=== PATIENT | male | born 1980 | race Two or more races ===

== ENCOUNTER 2019-01-23 16:24 | Inpatient (IN) | payer SELFPAY ==
[2019-01-23] MEDS ORDERED: ONDANSETRON HCL INJ/PF 4 MG/2 ML SDV IV ONE (16:53)
[2019-01-23] MEDS ORDERED: MORPHINE SULFATE 10 MG/ML INJ IV ONE (16:53)
--- NOTE | 2019-01-23 17:17 | ER Document Report ---
Entered by ELIZABETH MALHOTRA SCRIBE 01/23/19 [id number] Acting as scribe for:LALA CORREIA MD ED General - General Chief Complaint: Shoulder Pain Stated Complaint: SHOULDER PAIN Time Seen by Provider: 01/23/19 16:32 Mode of Arrival: Ambulatory Information source: Patient Notes: This 38-year-old male patient presents to the emergency department today with complaints of not being able to walk for the last x2 days. Patient complains of bilateral hip pain and right shoulder pain. Patient states his right shoulder is very swollen as well which also started x2 days ago. Patient states he has no chronic medical problems, has had what he thinks was a cholecystectomy in [place]. Patient denies any trauma or history of similar symptoms. Pertinent PMHx/PSHx: Cholecystectomy? - additional PMHx/PSHx not pertinent to this visit as recorded. PCP: none - Related Data Allergies/Adverse Reactions: No Known Allergies Allergy (Verified 01/23/19 17:02) Past Medical History - General Information source: Patient - Social History Smoking Status: Smoker,Current Status Unk Cigarette use (# per day): Yes - Patient reports he will smoke 1 cigarette every few days. Chew tobacco use (# tins/day): No Smoking Education Provided: No Frequency of alcohol use: None Drug Abuse: None Occupation: Construction Lives with: Family Family History: Reviewed & Not Pertinent - No history of rheumatological type problems - Medical History Medical History: Negative Past Surgical History: Reports: Hx Cholecystectomy Review of Systems - Review of Systems Constitutional: No symptoms reported EENT: No symptoms reported Cardiovascular: No symptoms reported Respiratory: No symptoms reported Gastrointestinal: No symptoms reported Genitourinary: No symptoms reported Male Genitourinary: No symptoms reported Musculoskeletal: See HPI Skin: No symptoms reported Hematologic/Lymphatic: No symptoms reported Neurological/Psychological: No symptoms reported -: Yes All other systems reviewed and negative Physical Exam - Vital signs Vitals: Temp Pulse Resp BP Pulse Ox 98.8 F 82 21 H 129/94 H 89 L 01/23/19 16:39 01/23/19 16:39 01/23/19 16:39 01/23/19 16:39 01/23/19 16:39 - General General appearance: Alert, Anxious In distress: Moderate - HEENT Head: Normocephalic, Atraumatic Eyes: Normal Pupils: PERRL Neck: Other - The right posterior lateral neck slightly below the hairline has 2 crops of pinpoint pustules with some erythema. - Respiratory Respiratory status: No respiratory distress Breath sounds: Normal - Cardiovascular Rhythm: Regular Heart sounds: Normal auscultation Murmur: No - Abdominal Inspection: Normal Bowel sounds: Normal Tenderness: Nontender - Back Back: Nontender - Extremities General upper extremity: Other - The right shoulder is grossly swollen and exquisitely tender consistent with large joint effusion. Minimal range of motion attempts is very painful. Left shoulder is only a little bit tender. General lower extremity: Other - Both hips are very tender to palpate and to attempt to internally and externally rotate. - Neurological Neuro grossly intact: Yes - Psychological Associated symptoms: Normal affect, Normal mood - Skin Skin Temperature: Warm Skin Moisture: Moist Skin Color: Normal Course - Vital Signs Vital signs: Temp Pulse Resp BP Pulse Ox 98.8 F 82 19 129/88 H 100 01/23/19 16:39 01/23/19 16:39 01/23/19 19:05 01/23/19 19:05 01/23/19 19:05 - Laboratory Result Diagrams: 01/23/19 17:30 01/23/19 17:30 Laboratory results interpreted by me: 01/23/19 01/23/19 01/23/19 17:30 17:30 17:30 WBC 21.1 H Seg Neuts % (Manual) 81 H Band Neutrophils % 1 L Lymphocytes % (Manual) 9 L Abs Neuts (Manual) 17.3 H Abs Monocytes (Manual) 1.9 H ESR 66 H Sodium 133.3 L Carbon Dioxide 20 L BUN 42 H Creatinine 4.00 H Est GFR ( Amer) 20 L Est GFR (MDRD) Non-Af 17 L Magnesium 2.4 H Total Bilirubin 1.6 H Direct Bilirubin 0.7 H AST 1013 H Creatine Kinase 90163 H C-Reactive Protein 344.9 H Total Protein 8.4 H - Diagnostic Test Radiology reviewed: Image reviewed - Chest x-ray is unremarkable - EKG Interpretation by Me EKG shows normal: Sinus rhythm, [place], Intervals, QRS Complexes, ST-T Waves Rate: Normal - 67 Rhythm: NSR - Consults Dr. Gregory Time consulted: 19:29 Consulted provider: will come to ER Critical Care Note - Critical Care Note Total time excluding time spent on procedures (mins): 40 Discharge - Discharge Clinical Impression: Autoimmune disorder, Multiple joint pain, Elevated C-reactive protein (CRP), Elevated erythrocyte sedimentation rate, Elevated liver function tests Leukocytosis Qualifiers: Leukocytosis type: unspecified Qualified Code(s): D72.829 - Elevated white blood cell count, unspecified Rhabdomyolysis Qualifiers: Rhabdomyolysis type: non-traumatic Qualified Code(s): M62.82 - Rhabdomyolysis Acute renal failure Qualifiers: Acute renal failure type: unspecified Qualified Code(s): N17.9 - Acute kidney failure, unspecified Condition: Stable Disposition: ADMITTED INPATIENT Admitting Provider: Bri (Hospitalist) Unit Admitted: Medical Floor Scribe Attestation: 01/23/19 19:39 I personally performed the services described in the documentation, reviewed and edited the documentation which was dictated to the scribe in my presence, and it accurately records my words and actions. I personally performed the services described in the documentation, reviewed and edited the documentation which was dictated to the scribe in my presence, and it accurately records my words and actions.
[2019-01-23] MEDS ORDERED: NORMAL SALINE 1000 ML 1,000 ML IV ONE ×2 (17:46→18:54)
[2019-01-23 17:56] LABS: HEMATOCRIT 44.4 % (37.9-51.0); HEMOGLOBIN 15.4 g/dL (13.5-17.0); MEAN CORPUSCULAR HEMOGLOBIN 32.4 pg (27.0-33.4); MEAN CORPUSCULAR HGB CONC 34.7 g/dL (32.0-36.0); MEAN CORPUSCULAR VOLUME 93 fl (80-97); PLATELET COUNT 326 10^3/uL (150-450); RED BLOOD COUNT 4.76 10^6/uL (4.35-5.55); RED CELL DISTRIBUTION WIDTH 12.1 % (11.5-14.0); WHITE BLOOD COUNT 21.1 10^3/uL (4.0-10.5)
[2019-01-23 18:18] LABS: ABSOLUTE LYMPHOCYTES# (MANUAL) 1.9 10^3/uL (0.5-4.7); ABSOLUTE MONOCYTES # (MANUAL) 1.9 10^3/uL (0.1-1.4); BAND NEUTROPHILS % (MANUAL) 1 % (3-5); BASOPHILS % (MANUAL) 0 % (0-2); EOSINOPHILS % (MANUAL) 0 % (0-6); LYMPHOCYTES % (MANUAL) 9 % (13-45); MONOCYTES % (MANUAL) 9 % (3-13); PLATELET COMMENT ADEQUATE; RBC MORPHOLOGY COMMENT NORMO-CYTIC/CHROMIC; SEGMENTED NEUTROPHILS % (MAN) 81 % (42-78); TOTAL CELLS COUNTED 100
[2019-01-23 18:33] LABS: ERYTHROCYTE SEDIMENTATION RATE 66 mm/hr (0-15)
[2019-01-23 18:50] LABS: C-REACTIVE PROTEIN 344.9 mg/L (<10.0)
[2019-01-23] MEDS ORDERED: METHYLPREDNISOLONE INJ 125 MG/2 ML SDV IV ONE (18:54)
[2019-01-23 19:26] LABS: ALBUMIN 4.4 g/dL (3.5-5.0); ALKALINE PHOSPHATASE 85 U/L (38-126); ANION GAP 14 (5-19); BILIRUBIN,DIRECT 0.7 mg/dL (0.0-0.4); BILIRUBIN,TOTAL 1.6 mg/dL (0.2-1.3); BLOOD UREA NITROGEN 42 mg/dL (7-20); CARBON DIOXIDE 20 mmol/L (22-30); CHLORIDE 99 mmol/L (98-107); GLUCOSE 109 mg/dL (75-110); POTASSIUM 4.1 mmol/L (3.6-5.0); TOTAL PROTEIN 8.4 g/dL (6.3-8.2)
[2019-01-23 19:34] LABS: ASPARTATE AMINO TRANSFERASE 1013 U/L (17-59)
--- NOTE | 2019-01-23 20:01 | RADIOLOGY REPORT (SQ) ---
EXAM DESCRIPTION: CHEST SINGLE VIEW COMPLETED DATE/TIME: 01/23/2019 7:41 pm REASON FOR STUDY: Rhabdomyolysis, include the right shoulder COMPARISON: None. TECHNIQUE: Single frontal radiographic view of the chest acquired. NUMBER OF VIEWS: One view. LIMITATIONS: None. FINDINGS: LUNGS AND PLEURA: No pneumothorax. Bibasilar subsegmental atelectasis -airspace opacities , left greater than right. No pleural effusion. MEDIASTINUM AND HILAR STRUCTURES: Age-appropriate contour. HEART AND VASCULAR STRUCTURES: Normal size. BONES: No acute findings. HARDWARE: None in the chest. OTHER: No other significant finding. IMPRESSION: Bibasilar subsegmental atelectasis -airspace opacities, left greater than right. No ple ural effusion. TECHNICAL DOCUMENTATION: JOB ID: [id number] [place]-72 2010 [employer]- All Rights Reserved Reading location - IP/workstation name: Minetta Brook
[2019-01-23 20:46] LABS: APPEARANCE,URINE SLIGHTLY-CLOUDY; BILIRUBIN,URINE NEGATIVE (NEGATIVE); COLOR,URINE YELLOW; GLUCOSE, URINE NEGATIVE (NEGATIVE); KETONES,URINE NEGATIVE (NEGATIVE); LEUKOCYTE ESTERASE,URINE NEGATIVE (NEGATIVE); NITRITE,URINE NEGATIVE (NEGATIVE); PROTEIN,URINE 30 mg/dL (NEGATIVE); URINE SPECIFIC GRAVITY 1.013; UROBILINOGEN,URINE NEGATIVE mg/dL (<2.0)
[2019-01-23] MEDS ORDERED: MAGNESIUM HYDROXIDE SUSP 30 ML UDCUP PO PRN (22:20)
[2019-01-23] MEDS ORDERED: PROMETHAZINE HCL INJ 25 MG/1 ML VIAL IV PRN (22:20)
[2019-01-23] MEDS ORDERED: MAG HYDROX/AL HYDROX/SIMETH SUSP 30 ML UDCUP PO PRN (22:20)
[2019-01-23] MEDS ORDERED: MORPHINE SULFATE 10 MG/ML INJ IV PRN (22:24)
[2019-01-23] MEDS ORDERED: DIAZEPAM INJ 10 MG/2 ML DISP.SYRIN IV PRN (22:26)
[2019-01-23] MEDS: HEPARIN SOD (PORCINE) 5,000 UNIT/ML 1 ML VIAL SUBCUT SCH (22:37)
[2019-01-23] MEDS: MORPHINE SULFATE 10 MG/ML INJ IV PRN (22:38)
[2019-01-23] MEDS: RINGERS SOLUTION,LACTATED 1,000 ML IV PRN (22:39)
[2019-01-24] MEDS: MORPHINE SULFATE 10 MG/ML INJ IV PRN ×3 (00:52→12:53)
--- NOTE | 2019-01-24 01:35 | PDOC H&P ---
History of Present Illness Admission Date/PCP: 01/23/19 19:55 No local PCP Patient complains of: Right shoulder pain History of Present Illness: SKYLA GUERRA is a 38 year old male who presented to the emergency room with a 2- day history of right shoulder pain. Patient admits developing pain in his right shoulder that has gradually worsened to severe at the time of his presentation. His right shoulder is swollen and tender to touch with severe pain on movement. His right shoulder pain has been accompanied by left shoulder pain and bilateral hip pain that has also gradually increased over the last 2 days, becoming severe and limiting his ability to walk. He also noted swelling in his right hip with associated numbness in his right foot. He denies history of injury. He denies other associated or accompanying signs and symptoms. He denies prior similar episodes. He has not identified any additional aggravating or ameliorating factors for his shoulder and hip pain. In the emergency room he was found to have a swollen and tender right shoulder with decreased range of motion due to severe pain. Additionally he was noted to have left shoulder and bilateral hip tenderness and decreased range of motion due to pain. He was also noted to have an elevated BUN, elevated creatinine, markedly elevated CPK, markedly elevated CRP, markedly elevated ESR and a leukocytosis. Two small areas of superficial folliculitis were noted in the right postauricular region of his neck. He was subsequently admitted to the hospital for further evaluation and treatment. Past Medical History Cardiac Medical History: Denies: Coronary Artery Disease, DVT, Hyperlipidema, Hypertension, Pulmonary Embolism Pulmonary Medical History: Denies: Asthma, Chronic Obstructive Pulmonary Disease (COPD) EENT Medical History: Denies: Cataracts, Eyes - Prescription eyewear, Ears - Hearing problems, Nose - Allergic rhinitis Neurological Medical History: Denies: Migraine, Multiple Sclerosis, Seizures Endocrine Medical History: Reports: Obesity Denies: Diabetes Mellitus Type 1, Diabetes Mellitus Type 2, Hyperthyroidism, Hypothyroidism Renal/ Medical History: Denies: Chronic Kidney Disease, Nephrolithiasis Malignancy Medical History: Reports: None GI Medical History: Denies: Cirrhosis, Crohn's Disease, Gastroesophageal Reflux Disease, Hepatitis, Peptic Ulcer Disease, Ulcerative Colitis Musculoskeltal Medical History: Denies: Arthritis, Fibromyalgia, Gout Skin Medical History: Denies: Eczema, Psoriasis Psychiatric Medical History: Denies: Alcohol Dependency, Substance Abuse, Tobacco Dependency Traumatic Medical History: Reports: None Hematology: Denies: Anemia, Bleeding Tendencies Infectious Medical History: Reports: None Past Surgical History Past Surgical History: Reports: Cholecystectomy Social History Information Source: Patient Lives with: Family Smoking Status: Current Some Day Smoker Electronic Cigarette use?: No Frequency of Alcohol Use: Occasional Hx Recreational Drug Use: No Drugs: None Hx Prescription Drug Abuse: No - Advance Directive Resuscitation Status: Full Code Surrogate healthcare decision maker:: Rosa Arango Family History Family History: denies: Arthritis, CAD, DM, Hypertension, Malignancy Parental Family History Reviewed: Yes Children Family History Reviewed: No Sibling(s) Family History Reviewed.: Yes Medication/Allergy Home Medications: No Home Medications 01/23/19 Allergies/Adverse Reactions: No Known Allergies Allergy (Verified 01/23/19 17:02) Review of Systems Constitutional: ABSENT: chills, fever(s) Eyes: ABSENT: visual disturbances, other - Eye pain Ears: ABSENT: hearing changes, other - Ear pain Nose, Mouth, and Throat: ABSENT: headache(s), mouth pain, sore throat Cardiovascular: ABSENT: chest pain, palpitations Respiratory: ABSENT: cough, dyspnea Gastrointestinal: ABSENT: abdominal pain, constipation, diarrhea, nausea, vomiting Musculoskeletal: PRESENT: as per HPI, joint swelling. ABSENT: back pain, muscle weakness Integumentary: PRESENT: as per HPI, rash. ABSENT: pruritus Neurological: PRESENT: as per HPI, abnormal gait, numbness. ABSENT: confusion, convulsions, focal weakness, memory loss, syncope Psychiatric: ABSENT: anxiety, depression Endocrine: ABSENT: cold intolerance, heat intolerance Hematologic/Lymphatic: ABSENT: easy bleeding, easy bruising Allergic/Immunologic: ABSENT: seasonal rhinorrhea Physical Exam Vital Signs: Temp Pulse Resp BP Pulse Ox 98.8 F 82 19 129/88 H 100 01/23/19 16:39 01/23/19 16:39 01/23/19 19:05 01/23/19 19:05 01/23/19 19:05 Intake & Output 01/21/19 01/22/19 01/23/19 23:59 23:59 23:59 Intake Total 1000 Balance 1000 Weight 96.162 kg General appearance: PRESENT: cooperative, mild distress - Secondary to joint pain, obese Head exam: PRESENT: atraumatic, normocephalic Eye exam: PRESENT: conjunctiva pink. ABSENT: conjunctival injection, scleral icterus Ear exam: PRESENT: normal external ear exam. ABSENT: bleeding, drainage Mouth exam: PRESENT: dry mucosa, neck supple Neck exam: ABSENT: thyromegaly, tracheal deviation Respiratory exam: PRESENT: clear to auscultation raman, symmetrical, unlabored Cardiovascular exam: PRESENT: RRR. ABSENT: clicks, gallop, rubs Pulses: PRESENT: normal radial pulses, normal dorsalis pedis pul Vascular exam: PRESENT: normal capillary refill. ABSENT: pallor GI/Abdominal exam: PRESENT: normal bowel sounds, soft Rectal exam: PRESENT: deferred Extremities exam: PRESENT: joint swelling - Right shoulder with severe swelling, tenderness to palpation and decreased range of motion due to pain, left shoulder with tenderness to palpation and decreased range of motion due to pain., tenderness - Bilateral hips with tenderness to palpation and decreased range of motion due to pain. Right hip with moderate local swelling. Musculoskeletal exam: ABSENT: deformity, dislocation Neurological exam: PRESENT: alert, oriented to person, oriented to place, oriented to time, oriented to situation, CN II-XII grossly intact. ABSENT: motor sensory deficit Psychiatric exam: PRESENT: appropriate affect, normal mood Skin exam: PRESENT: dry, intact, warm. ABSENT: jaundice, rash, urticaria Results Laboratory Results: 01/23/19 17:30 01/23/19 17:30 01/23/19 01/23/19 01/23/19 17:30 17:30 17:30 WBC 21.1 H RBC 4.76 Hgb 15.4 Hct 44.4 MCV 93 MCH 32.4 MCHC 34.7 RDW 12.1 Plt Count 326 Seg Neutrophils % Not Reportable Sodium 133.3 L Potassium 4.1 Chloride 99 Carbon Dioxide 20 L Anion Gap 14 BUN 42 H Creatinine 4.00 H Est GFR ( Amer) 20 L Glucose 109 Calcium 9.0 Magnesium 2.4 H Total Bilirubin 1.6 H AST 1013 H Alkaline Phosphatase 85 C-Reactive Protein 344.9 H Total Protein 8.4 H Albumin 4.4 01/23/19 17:30 Creatine Kinase 59109 H Impressions: Chest X-Ray 01/23/19 19:27 IMPRESSION: Bibasilar subsegmental atelectasis -airspace opacities, left greater than right. No pleural effusion. Assessment and Plan - Diagnosis (1) Multiple joint pain Is this a current diagnosis for this admission?: Yes (2) Leukocytosis Qualifiers: Leukocytosis type: unspecified Qualified Code(s): D72.829 - Elevated white blood cell count, unspecified Is this a current diagnosis for this admission?: Yes (3) Rhabdomyolysis Qualifiers: Rhabdomyolysis type: non-traumatic Qualified Code(s): M62.82 - Rhabdomyolysis Is this a current diagnosis for this admission?: Yes (4) Elevated C-reactive protein (CRP) Is this a current diagnosis for this admission?: Yes (5) Elevated erythrocyte sedimentation rate Is this a current diagnosis for this admission?: Yes (6) Acute renal failure Qualifiers: Acute renal failure type: unspecified Qualified Code(s): N17.9 - Acute kidney failure, unspecified Is this a current diagnosis for this admission?: Yes (7) Elevated liver function tests Is this a current diagnosis for this admission?: Yes - Plan Summary Summary: Patient will be admitted to a medical bed and will receive routine supportive and symptomatic cares. He will be placed on high volume IV fluids and will receive morphine sulfate 2 to 4 mg IV every 2 hours on an as-needed basis for pain control. He will receive steroids utilizing Solu-Medrol 40 mg IV every 6 hours. His CPK will be monitored frequently and his liver function studies, metabolic profile and CBC will be monitored on a daily basis. A urinalysis will be obtained and his urine will be screened for chlamydia and gonorrhea. Further evaluations for possible autoimmune or viral causes will be investigated as appropriate. Rheumatology and or infectious disease consultation may be obtained when available. - Time Time Spent with patient: 25-34 minutes Medications reviewed and adjusted accordingly: No - No home meds Anticipated discharge: Home - Inpatient Certification Based on my medical assessment, after consideration of the patient's comorbidities, presenting symptoms, or acuity I expect that the services needed warrant INPATIENT care.: Yes I certify that my determination is in accordance with my understanding of Medicare's requirements for reasonable and necessary INPATIENT services [42 CFR 412.3e].: Yes Medical Necessity: Need Close Monitoring Due to Risk of Patient Decompensation, Need For IV Fluids - Low, Need for Pain Control, Risk of Complication if Not Cared For in Hospital, Risk of Diagnosis Which Will Require Inpatient Eval/Care/Monitoring
[2019-01-24 01:47] LABS: URINE AMPHETAMINES SCREEN NEGATIVE; URINE BARBITURATES SCREEN NEGATIVE; URINE BENZODIAZEPINES SCREEN NEGATIVE; URINE MARIJUANA (THC) SCREEN NEGATIVE; URINE METHADONE SCREEN NEGATIVE; URINE PHENCYCLIDINE SCREEN NEGATIVE
[2019-01-24 02:02] LABS: URINE COCAINE SCREEN UNCONFIRMED POSITIVE
[2019-01-24 02:35] LABS: CHLAM PCR NOT DETECTED (NOT DETECT)
[2019-01-24] MEDS: METHYLPREDNISOLONE INJ 40 MG/1 ML SDV IV SCH ×4 (03:51→21:33)
[2019-01-24] MEDS: HEPARIN SOD (PORCINE) 5,000 UNIT/ML 1 ML VIAL SUBCUT SCH ×3 (05:23→21:33)
[2019-01-24] MEDS: PANTOPRAZOLE SODIUM 40 MG TABLET.DR PO SCH ×2 (05:23→17:10)
[2019-01-24 05:43] LABS: HEMATOCRIT 40.3 % (37.9-51.0); HEMOGLOBIN 13.8 g/dL (13.5-17.0); MEAN CORPUSCULAR HEMOGLOBIN 32.1 pg (27.0-33.4); MEAN CORPUSCULAR HGB CONC 34.3 g/dL (32.0-36.0); MEAN CORPUSCULAR VOLUME 94 fl (80-97); PLATELET COUNT 280 10^3/uL (150-450); RED BLOOD COUNT 4.31 10^6/uL (4.35-5.55); RED CELL DISTRIBUTION WIDTH 12.1 % (11.5-14.0); WHITE BLOOD COUNT 18.7 10^3/uL (4.0-10.5)
[2019-01-24 06:09] LABS: ANION GAP 10 (5-19); BLOOD UREA NITROGEN 40 mg/dL (7-20); CARBON DIOXIDE 23 mmol/L (22-30); CHLORIDE 108 mmol/L (98-107); CHOLESTEROL 217.19 mg/dL (0-200); GLUCOSE 141 mg/dL (75-110); POTASSIUM 4.9 mmol/L (3.6-5.0); TRIGLYCERIDES 233 mg/dL (<150)
[2019-01-24 06:20] LABS: DIRECT LDL 99 mg/dL (<100)
[2019-01-24 06:25] LABS: VLDL CHOLESTEROL 46.6 mg/dL (10-31)
[2019-01-24 06:48] LABS: CREATINE KINASE 35977 U/L (55-170)
--- NOTE | 2019-01-24 07:36 | EKG REPORT ---
SEVERITY:- NORMAL ECG - SINUS RHYTHM : Confirmed by: Daryl Mayen MD 24-Jan-2019 07:35:55
[2019-01-24] MEDS: DOCUSATE SODIUM 100 MG CAPSULE PO SCH ×2 (09:29→17:10)
[2019-01-24] MEDS: RINGERS SOLUTION,LACTATED 1,000 ML IV PRN ×3 (13:01→21:35)
[2019-01-24] MEDS ORDERED: TRAMADOL HCL 50 MG TABLET PO PRN (15:52)
--- NOTE | 2019-01-24 16:05 | PDOC PROGRESS REPORT ---
Subjective Progress Note for:: 01/24/19 Subjective:: Patient states symptoms have improved since receiving steroids. Still having arthralgias in the right shoulder both hips and a little bit of his ankles. Reason For Visit: ACUTE POLYARTHRITIS Physical Exam Vital Signs: Temp Pulse Resp BP Pulse Ox 98.3 F 92 19 141/85 H 96 01/24/19 14:00 01/24/19 14:00 01/24/19 14:00 01/24/19 14:00 01/24/19 14:00 Intake & Output 01/23/19 01/24/19 01/25/19 06:59 06:59 06:59 Intake Total 3000 Output Total 800 700 Balance 2200 -700 Weight 96.162 kg 94.6 kg General appearance: PRESENT: cooperative Eye exam: PRESENT: EOMI Neck exam: ABSENT: JVD Respiratory exam: PRESENT: clear to auscultation raman, symmetrical, unlabored. ABSENT: tachypnea, wheezes Cardiovascular exam: PRESENT: RRR, +S1, +S2. ABSENT: systolic murmur, tachycardia GI/Abdominal exam: PRESENT: normal bowel sounds, soft. ABSENT: guarding, rigid, tenderness Musculoskeletal exam: PRESENT: other - Tenderness to his right shoulder with swelling but minimal erythema. Tenderness in upper thighs. No significant effusion noted in ankles or knee joints.. ABSENT: deformity Neurological exam: PRESENT: alert, awake, oriented to person, oriented to place, oriented to time, oriented to situation Skin exam: PRESENT: other - Flushed. ABSENT: rash Results Laboratory Results: 01/24/19 04:20 01/24/19 04:20 01/23/19 01/23/19 01/23/19 17:30 17:30 17:30 WBC 21.1 H RBC 4.76 Hgb 15.4 Hct 44.4 MCV 93 MCH 32.4 MCHC 34.7 RDW 12.1 Plt Count 326 Seg Neutrophils % Not Reportable Sodium 133.3 L Potassium 4.1 Chloride 99 Carbon Dioxide 20 L Anion Gap 14 BUN 42 H Creatinine 4.00 H Est GFR ( Amer) 20 L Glucose 109 Calcium 9.0 Magnesium 2.4 H Total Bilirubin 1.6 H AST 1013 H Alkaline Phosphatase 85 C-Reactive Protein 344.9 H Total Protein 8.4 H Albumin 4.4 Triglycerides Cholesterol LDL Cholesterol Direct VLDL Cholesterol HDL Cholesterol TSH Urine Color Urine Appearance Urine pH Ur Specific [place] Urine Protein Urine Glucose (UA) Urine Ketones Urine Blood Urine Nitrite Ur Leukocyte Esterase Urine WBC (Auto) Urine RBC (Auto) 01/23/19 01/24/19 01/24/19 20:28 04:20 04:20 WBC 18.7 H RBC 4.31 L Hgb 13.8 Hct 40.3 MCV 94 MCH 32.1 MCHC 34.3 RDW 12.1 Plt Count 280 Seg Neutrophils % Sodium 141.1 Potassium 4.9 Chloride 108 H Carbon Dioxide 23 Anion Gap 10 BUN 40 H Creatinine 2.72 H Est GFR ( Amer) 32 L Glucose 141 H Calcium 9.0 Magnesium 2.6 H Total Bilirubin AST Alkaline Phosphatase C-Reactive Protein Total Protein Albumin Triglycerides 233 H Cholesterol 217.19 H LDL Cholesterol Direct 99 VLDL Cholesterol 46.6 H HDL Cholesterol 40 TSH Urine Color YELLOW Urine Appearance SLIGHTLY-CLOUDY Urine pH 5.0 Ur Specific [place] 1.013 Urine Protein 30 H Urine Glucose (UA) NEGATIVE Urine Ketones NEGATIVE Urine Blood LARGE H Urine Nitrite NEGATIVE Ur Leukocyte Esterase NEGATIVE Urine WBC (Auto) 3 Urine RBC (Auto) 1 01/24/19 04:20 WBC RBC Hgb Hct MCV MCH MCHC RDW Plt Count Seg Neutrophils % Sodium Potassium Chloride Carbon Dioxide Anion Gap BUN Creatinine Est GFR ( Amer) Glucose Calcium Magnesium Total Bilirubin AST Alkaline Phosphatase C-Reactive Protein Total Protein Albumin Triglycerides Cholesterol LDL Cholesterol Direct VLDL Cholesterol HDL Cholesterol TSH 0.47 Urine Color Urine Appearance Urine pH Ur Specific [place] Urine Protein Urine Glucose (UA) Urine Ketones Urine Blood Urine Nitrite Ur Leukocyte Esterase Urine WBC (Auto) Urine RBC (Auto) 01/23/19 01/23/19 01/24/19 17:30 21:55 04:20 Creatine Kinase 72979 H 51858 H 85518 H 01/24/19 11:00 Creatine Kinase 34224 H Impressions: Chest X-Ray 01/23/19 19:27 IMPRESSION: Bibasilar subsegmental atelectasis -airspace opacities, left greater than right. No pleural effusion. Assessment and Plan - Diagnosis (1) Rhabdomyolysis Qualifiers: Rhabdomyolysis type: non-traumatic Qualified Code(s): M62.82 - Rhabdomyolysis Is this a current diagnosis for this admission?: Yes Plan: Aggressive IV fluid hydration. Trend CK levels (2) Multiple joint pain Is this a current diagnosis for this admission?: Yes Plan: Etiology of patient's polyarthralgias is uncertain. Differential diagnosis includes rheumatoid arthritis, polyarticular gout, autoimmune disease or adult onset stills disease.. Follow-up gonorrhea testing was negative and so was antistreptolysin. ERICA has been sent out I will check rheumatoid factor, ferritin and uric acid levels Patient seems to have responded nicely to Solu-Medrol so we will continue IV steroids. (3) Acute kidney injury with acute tubular necrosis Is this a current diagnosis for this admission?: Yes Plan: I suspect ATN secondary to rhabdomyolysis. Creatinine improving with aggressive IV fluids. Continue to monitor urine output. (4) Elevated liver function tests Is this a current diagnosis for this admission?: Yes Plan: May be secondary to rhabdomyolysis causing elevated transaminases. Or this may be secondary to whatever is causing patient's current systemic inflammatory state. (5) Leukocytosis Qualifiers: Leukocytosis type: unspecified Qualified Code(s): D72.829 - Elevated white blood cell count, unspecified Is this a current diagnosis for this admission?: Yes - Time Time Spent with patient: 15-24 minutes
[2019-01-24 17:04] LABS: URIC ACID 7.9 mg/dL (3.5-8.5)
[2019-01-24] MEDS: TRAMADOL HCL 50 MG TABLET PO PRN (17:09)
[2019-01-25] MEDS: METHYLPREDNISOLONE INJ 40 MG/1 ML SDV IV SCH ×4 (03:50→21:55)
[2019-01-25] MEDS: RINGERS SOLUTION,LACTATED 1,000 ML IV PRN ×4 (03:54→19:54)
[2019-01-25] MEDS: PANTOPRAZOLE SODIUM 40 MG TABLET.DR PO SCH ×2 (05:47→18:54)
[2019-01-25] MEDS: HEPARIN SOD (PORCINE) 5,000 UNIT/ML 1 ML VIAL SUBCUT SCH ×3 (05:47→21:55)
[2019-01-25] MEDS: TRAMADOL HCL 50 MG TABLET PO PRN ×2 (08:47→18:54)
[2019-01-25 08:48] LABS: HEMATOCRIT 38.4 % (37.9-51.0); HEMOGLOBIN 13.3 g/dL (13.5-17.0); MEAN CORPUSCULAR HEMOGLOBIN 32.1 pg (27.0-33.4); MEAN CORPUSCULAR HGB CONC 34.8 g/dL (32.0-36.0); MEAN CORPUSCULAR VOLUME 92 fl (80-97); PLATELET COUNT 305 10^3/uL (150-450); RED BLOOD COUNT 4.15 10^6/uL (4.35-5.55); RED CELL DISTRIBUTION WIDTH 12.6 % (11.5-14.0)
[2019-01-25 09:01] LABS: ANION GAP 10 (5-19); BLOOD UREA NITROGEN 23 mg/dL (7-20); CALCIUM 9.7 mg/dL (8.4-10.2); CARBON DIOXIDE 24 mmol/L (22-30); CHLORIDE 108 mmol/L (98-107); GLUCOSE 126 mg/dL (75-110)
[2019-01-25] MEDS: DOCUSATE SODIUM 100 MG CAPSULE PO SCH ×2 (09:29→18:54)
[2019-01-25 09:42] LABS: CREATINE KINASE 13928 U/L (55-170)
[2019-01-25 13:37] LABS: ANTINUCLEAR ANTIBODIES Positive (Negative); SJOGREN'S ANTI-SS-B AB 2.8 AI (0.0-0.9); SJOGREN'S SS-A ANTIBODY <0.2 AI (0.0-0.9); SMITH AB ANA <0.2 AI (0.0-0.9)
[2019-01-25 14:20] LABS: DNA DOUBLE STRAND ANTIBODY ANA 1 IU/mL (0-9)
--- NOTE | 2019-01-25 18:02 | PDOC PROGRESS REPORT ---
Subjective Progress Note for:: 01/25/19 Subjective:: Patient endorses continued improvement in shoulder pain. Still feels stiff and hard to move. Reason For Visit: ACUTE POLYARTHRITIS Physical Exam Vital Signs: Temp Pulse Resp BP Pulse Ox 97.7 F 86 18 137/81 H 97 01/25/19 11:12 01/25/19 11:12 01/25/19 11:12 01/25/19 11:12 01/25/19 11:12 Intake & Output 01/24/19 01/25/19 01/26/19 06:59 06:59 06:59 Intake Total 3000 4276 2476 Output Total 800 700 Balance 2200 3576 2476 Weight 96.162 kg 94.2 kg General appearance: PRESENT: no acute distress Neck exam: ABSENT: JVD Respiratory exam: PRESENT: clear to auscultation raman, symmetrical, unlabored. ABSENT: tachypnea, wheezes Cardiovascular exam: PRESENT: RRR, +S1, +S2. ABSENT: rubs, tachycardia GI/Abdominal exam: PRESENT: normal bowel sounds, soft. ABSENT: rigid, tenderness Musculoskeletal exam: PRESENT: tenderness - And swelling in the right shoulder Neurological exam: PRESENT: alert, awake, oriented to person, oriented to place, oriented to time, oriented to situation Results Laboratory Results: 01/25/19 08:01 01/25/19 08:01 01/25/19 01/25/19 08:01 08:01 WBC 25.0 H RBC 4.15 L Hgb 13.3 L Hct 38.4 MCV 92 MCH 32.1 MCHC 34.8 RDW 12.6 Plt Count 305 Sodium 141.8 Potassium 5.0 Chloride 108 H Carbon Dioxide 24 Anion Gap 10 BUN 23 H Creatinine 1.07 Est GFR ( Amer) > 60 Glucose 126 H Calcium 9.7 Magnesium 2.3 01/23/19 01/23/19 01/24/19 17:30 21:55 04:20 Creatine Kinase 26531 H 91292 H 80596 H 01/24/19 01/24/19 01/25/19 11:00 16:25 08:01 Creatine Kinase 32740 H 47600 H 68392 H Impressions: Chest X-Ray 01/23/19 19:27 IMPRESSION: Bibasilar subsegmental atelectasis -airspace opacities, left greater than right. No pleural effusion. Assessment and Plan - Diagnosis (1) Rhabdomyolysis Qualifiers: Rhabdomyolysis type: non-traumatic Qualified Code(s): M62.82 - Rhabdomyolysis Is this a current diagnosis for this admission?: Yes Plan: Aggressive IV fluid hydration. CK levels improving significantly (2) Multiple joint pain Is this a current diagnosis for this admission?: Yes Plan: Etiology of patient's inflammatory polyarthritis is uncertain. Differential diagnosis includes an overlap syndrome/connective tissue disease, rheumatoid arthritis, viral polyarthritis or other autoimmune condition Follow-up gonorrhea testing was negative and so was antistreptolysin. ERICA qualitative came back elevated. Rheumatoid factor is negative. Anti-CCP pending. Anti-SSB elevated. Anti-OPENER [employer]S elevated. Uric acid and ferritin level unimpressive Patient seems to have responded nicely to Solu-Medrol so we will continue IV steroids. We will attempt to see if orthopedics can perform arthrocentesis tomorrow Get x-rays of right shoulder and both hips We will need quantitative ERICA titers. (3) Acute kidney injury with acute tubular necrosis Is this a current diagnosis for this admission?: Yes Plan: I suspect ATN secondary to rhabdomyolysis. MARIANO currently resolved following IV fluids (4) Elevated liver function tests Is this a current diagnosis for this admission?: Yes Plan: May be secondary to rhabdomyolysis causing elevated transaminases. Or this may be secondary to whatever is causing patient's current systemic inflammatory state. (5) Leukocytosis Qualifiers: Leukocytosis type: unspecified Qualified Code(s): D72.829 - Elevated white blood cell count, unspecified Is this a current diagnosis for this admission?: Yes - Time Time Spent with patient: 15-24 minutes - Inpatient Certification Medical Necessity: Need For IV Fluids
[2019-01-26] MEDS ORDERED: METHYLPREDNISOLONE INJ 40 MG/1 ML SDV IV ONE (01:00)
[2019-01-26] MEDS: ACETAMINOPHEN 325 MG TABLET PO PRN ×2 (01:20→09:28)
[2019-01-26] MEDS: RINGERS SOLUTION,LACTATED 1,000 ML IV PRN ×2 (01:21→07:49)
[2019-01-26] MEDS: PANTOPRAZOLE SODIUM 40 MG TABLET.DR PO SCH ×2 (05:55→17:17)
[2019-01-26] MEDS: TRAMADOL HCL 50 MG TABLET PO PRN ×2 (05:55→17:17)
[2019-01-26] MEDS: HEPARIN SOD (PORCINE) 5,000 UNIT/ML 1 ML VIAL SUBCUT SCH ×3 (05:56→22:43)
[2019-01-26 06:45] LABS: HEMATOCRIT 34.3 % (37.9-51.0); HEMOGLOBIN 11.8 g/dL (13.5-17.0); MEAN CORPUSCULAR HEMOGLOBIN 32.1 pg (27.0-33.4); MEAN CORPUSCULAR HGB CONC 34.5 g/dL (32.0-36.0); MEAN CORPUSCULAR VOLUME 93 fl (80-97); PLATELET COUNT 289 10^3/uL (150-450); RED BLOOD COUNT 3.69 10^6/uL (4.35-5.55); RED CELL DISTRIBUTION WIDTH 12.4 % (11.5-14.0); WHITE BLOOD COUNT 16.6 10^3/uL (4.0-10.5)
[2019-01-26 07:11] LABS: ANION GAP 8 (5-19); BLOOD UREA NITROGEN 21 mg/dL (7-20); CALCIUM 9.5 mg/dL (8.4-10.2); CARBON DIOXIDE 26 mmol/L (22-30); CHLORIDE 108 mmol/L (98-107); GLUCOSE 122 mg/dL (75-110); POTASSIUM 4.7 mmol/L (3.6-5.0)
[2019-01-26 07:35] LABS: CREATINE KINASE 4958 U/L (55-170)
--- NOTE | 2019-01-26 08:28 | RADIOLOGY REPORT (SQ) ---
EXAM DESCRIPTION: HIP BILATERAL COMPLETED DATE/TIME: 01/25/2019 10:30 pm REASON FOR STUDY: hip pain and swelling COMPARISON: None. NUMBER OF VIEWS: Two views. TECHNIQUE: AP pelvis and additional frog-leg view of the right and left hip. LIMITATIONS: None. FINDINGS: MINERALIZATION: Normal. RIGHT HIP: No fracture or dislocation. No worrisome bone lesions. LEFT HIP: No fracture or dislocation. No worrisome bone lesions. PUBIS AND ISCHIUM: No fracture. PELVIS: No fracture. SACRUM: No fracture or dislocation. No worrisome bone lesions. LOWER LUMBAR SPINE: No fracture or dislocation. No worrisome bone lesions. No significant disc disea se. SOFT TISSUES: No findings. OTHER: No other significant finding. IMPRESSION: No acute findings. No significant hip joint space narrowing or bony spurring TECHNICAL DOCUMENTATION: JOB ID: [id number]- All Rights Reserved Reading location - IP/workstation name: [email or web address]
--- NOTE | 2019-01-26 08:29 | RADIOLOGY REPORT (SQ) ---
EXAM DESCRIPTION: SHOULDER RIGHT 2 OR MORE VIEWS COMPLETED DATE/TIME: 01/25/2019 10:30 pm REASON FOR STUDY: shoulder pain and swelling COMPARISON: None. NUMBER OF VIEWS: Three views. TECHNIQUE: Internal rotation, external rotation, and Y view images acquired of the right shoulder. LIMITATIONS: None. FINDINGS: MINERALIZATION: Normal. BONES: No acute fracture. No worrisome bone lesions. JOINTS: No glenohumeral dislocation. No widening of the acromioclavicular joint. VISUALIZED LUNGS AND RIBS: No pneumothorax. No rib fracture. SOFT TISSUES: No radiopaque foreign body. OTHER: No other significant finding. IMPRESSION: NEGATIVE STUDY OF THE RIGHT SHOULDER. NO RADIOGRAPHIC EVIDENCE OF ACUTE INJURY. TECHNICAL DOCUMENTATION: JOB ID: [id number] [employer]- All Rights Reserved Reading location - IP/workstation name: [email or web address]
[2019-01-26] MEDS: DOCUSATE SODIUM 100 MG CAPSULE PO SCH ×2 (09:28→17:17)
--- NOTE | 2019-01-26 18:51 | PDOC PROGRESS REPORT ---
Subjective Progress Note for:: 01/26/19 Subjective:: Patient endorses improvement in polyarthralgias. Still having restricted range of motion in his right shoulder. Reason For Visit: ACUTE POLYARTHRITIS Physical Exam Vital Signs: Temp Pulse Resp BP Pulse Ox 97.8 F 55 L 16 142/79 H 100 01/26/19 15:35 01/26/19 15:35 01/26/19 15:35 01/26/19 15:35 01/26/19 15:35 Intake & Output 01/25/19 01/26/19 01/27/19 06:59 06:59 06:59 Intake Total 4276 6774 240 Output Total 700 Balance 3576 6774 240 Weight 94.2 kg 99 kg General appearance: PRESENT: no acute distress, cooperative Head exam: PRESENT: normocephalic Respiratory exam: PRESENT: clear to auscultation raman, unlabored. ABSENT: tachypnea, wheezes Cardiovascular exam: PRESENT: RRR, +S1, +S2. ABSENT: systolic murmur, tachycardia GI/Abdominal exam: PRESENT: normal bowel sounds, soft. ABSENT: guarding, seamus ound, rigid, tenderness Musculoskeletal exam: PRESENT: other - Restricted range of motion of the right shoulder. Right shoulder swelling improved. Results Laboratory Results: 01/26/19 06:06 01/26/19 06:06 01/26/19 01/26/19 06:06 06:06 WBC 16.6 H RBC 3.69 L Hgb 11.8 L Hct 34.3 L MCV 93 MCH 32.1 MCHC 34.5 RDW 12.4 Plt Count 289 Sodium 142.4 Potassium 4.7 Chloride 108 H Carbon Dioxide 26 Anion Gap 8 BUN 21 H Creatinine 0.93 Est GFR ( Amer) > 60 Glucose 122 H Calcium 9.5 Magnesium 1.9 01/23/19 17:30 Blood Blood Culture (PCR) - Final Staphylococcus Species 01/23/19 17:30 Blood Blood Culture - Final Staphylococcus Hominis 01/23/19 01/23/19 01/24/19 17:30 21:55 04:20 Creatine Kinase 96156 H 16703 H 08926 H 01/24/19 01/24/19 01/25/19 11:00 16:25 08:01 Creatine Kinase 49380 H 62327 H 85591 H 01/26/19 06:06 Creatine Kinase 4958 H Impressions: Chest X-Ray 01/23/19 19:27 IMPRESSION: Bibasilar subsegmental atelectasis -airspace opacities, left greater than right. No pleural effusion. Hip X-Ray 01/25/19 00:00 IMPRESSION: No acute findings. No significant hip joint space narrowing or bony spurring Shoulder X-Ray 01/25/19 00:00 IMPRESSION: NEGATIVE STUDY OF THE RIGHT SHOULDER. NO RADIOGRAPHIC EVIDENCE OF ACUTE INJURY. Assessment and Plan - Diagnosis (1) Rhabdomyolysis Qualifiers: Rhabdomyolysis type: non-traumatic Qualified Code(s): M62.82 - Rhabdomyolysis Is this a current diagnosis for this admission?: Yes Plan: Aggressive IV fluid hydration. CK levels improving significantly (2) Multiple joint pain Is this a current diagnosis for this admission?: Yes Plan: Etiology of patient's inflammatory polyarthritis is uncertain. Differential diagnosis includes an overlap syndrome/connective tissue disease, rheumatoid arthritis, viral polyarthritis or other autoimmune condition Follow-up gonorrhea testing was negative and so was antistreptolysin. ERICA qualitative came back elevated. Rheumatoid factor is negative. Anti-CCP pending. Anti-SSB elevated. Anti-ALL TERRAIN VEHICLE RACER elevated. Uric acid and ferritin level unimpressive Improving with steroids. We will de-escalate to oral prednisone. orthopedics consulted to evaluate right shoulder swelling and to see if need for arthrocentesis x-rays of right shoulder and both hips showing no evidence of arthritis We will need quantitative ERICA titers. (3) Acute kidney injury with acute tubular necrosis Is this a current diagnosis for this admission?: Yes Plan: I suspect ATN secondary to rhabdomyolysis. MARIANO currently resolved following IV fluids (4) Elevated liver function tests Is this a current diagnosis for this admission?: Yes (5) Leukocytosis Qualifiers: Leukocytosis type: unspecified Qualified Code(s): D72.829 - Elevated white blood cell count, unspecified Is this a current diagnosis for this admission?: Yes (6) Blood bacterial culture positive Is this a current diagnosis for this admission?: Yes Plan: One set positive for coagulase-negative staph. I think this may be contamination as patient is clinically improving and as such, I will repeat blood cultures. I will start on antibiotics pending repeat blood culture results. - Time Time Spent with patient: 15-24 minutes
[2019-01-26] MEDS: AMOXICILLIN TR/POT CLAVULANATE 500-125 MG TAB PO SCH (22:43)
[2019-01-27] MEDS: TRAMADOL HCL 50 MG TABLET PO PRN (04:18)
[2019-01-27 05:03] LABS: HEMOGLOBIN 13.3 g/dL (13.5-17.0); MEAN CORPUSCULAR HEMOGLOBIN 32.2 pg (27.0-33.4); MEAN CORPUSCULAR HGB CONC 34.9 g/dL (32.0-36.0); MEAN CORPUSCULAR VOLUME 92 fl (80-97); PLATELET COUNT 304 10^3/uL (150-450); RED BLOOD COUNT 4.12 10^6/uL (4.35-5.55); RED CELL DISTRIBUTION WIDTH 12.3 % (11.5-14.0); WHITE BLOOD COUNT 12.3 10^3/uL (4.0-10.5)
[2019-01-27 05:42] LABS: ABSOLUTE LYMPHOCYTES# (MANUAL) 2.7 10^3/uL (0.5-4.7); ABSOLUTE MONOCYTES # (MANUAL) 1.7 10^3/uL (0.1-1.4); BAND NEUTROPHILS % (MANUAL) 2 % (3-5); BASOPHILS % (MANUAL) 0 % (0-2); EOSINOPHILS % (MANUAL) 0 % (0-6); LYMPHOCYTES % (MANUAL) 22 % (13-45); MONOCYTES % (MANUAL) 14 % (3-13); SEGMENTED NEUTROPHILS % (MAN) 62 % (42-78); TOTAL CELLS COUNTED 100
[2019-01-27 05:44] LABS: OVALOCYTES SLIGHT; PLATELET COMMENT ADEQUATE; POIKILOCYTOSIS SLIGHT; TEAR DROP CELLS SLIGHT; TOXIC GRANULATION SLIGHT; TOXIC VACUOLATION PRESENT
[2019-01-27] MEDS: PANTOPRAZOLE SODIUM 40 MG TABLET.DR PO SCH ×2 (06:03→17:11)
[2019-01-27] MEDS: HEPARIN SOD (PORCINE) 5,000 UNIT/ML 1 ML VIAL SUBCUT SCH ×3 (06:03→21:34)
[2019-01-27 06:36] LABS: HEPATITS B SURFACE ANTIGEN Negative (Negative)
[2019-01-27 07:02] LABS: HEPATITIS C VIRUS ANTIBODY <0.1 s/co ratio (0.0-0.9)
--- NOTE | 2019-01-27 08:51 | PDOC CONSULTATION ---
Consultation Consult Date: 01/27/19 Attending physician:: MORRIS SOSA Provider Consulted: MERI GARCIA Consult reason:: Right shoulder pain in the setting of rhabdomyolysis History of Present Illness Admission Date/PCP: 01/23/19 19:55 Patient complains of: The patient is a 38-year-old man admitted to the medical service with acute rhabdomyolysis. He is complaining of bilateral shoulder pain, right worse than left. He is also complaining of bilateral pain in the gluteal region. History of Present Illness: SKYLA GUERRA is a 38 year old male admitted to the medical service 01/23/2019 with acute rhabdomyolysis. Symptoms as well as laboratory results are improving with hydration. The patient continues to complain of bilateral shoulder pain, right worse than left. He is also complaining of pain bilaterally in the gluteal region. The patient states that his symptoms are slightly worse than yesterday. He is having difficulty actively forward elevating the right shoulder. He is able to passively move the shoulder with the use of his other hand. Past Medical History Cardiac Medical History: Denies: None, Atrial Fibrillation, Congestive Heart Failure, Coronary Artery Disease, DVT, Myocardial Infarction, Hyperlipidema, Hypertension, Peripheral Vascular Disease, Pulmonary Embolism, Heart Murmur, Other Pulmonary Medical History: Denies: None, Asthma, Bronchitis, Chronic Obstructive Pulmonary Disease (COPD), Intubation, Pneumonia, Respiratory Failure, Sleep Apnea, Tuberculosis, Other EENT Medical History: Denies: None, Cataracts, Eyes, Ears, Nose, Throat, Other Neurological Medical History: Denies: None, Hemorrhagic CVA, Ischemic CVA, Migraine, Multiple Sclerosis, Seizures, Other Endocrine Medical History: Reports: Obesity Denies: Diabetes Mellitus Type 1, Diabetes Mellitus Type 2, Hyperthyroidism, Hypothyroidism Renal/ Medical History: Denies: None, Chronic Kidney Disease, End Stage Renal Disease, Nephrolithiasis, Other Malignancy Medical History: Reports: None Denies: Bone Cancer, Brain Cancer, Breast Cancer, Cervical Cancer, Colorectal Cancer, Leukemia, Liver Cancer, Lung Cancer, Lymphoma, Ovarian Cancer, Pancreatic Cancer, Renal (Kidney) Cancer, Skin Cancer, Other GI Medical History: Denies: None, Cirrhosis, Crohn's Disease, Diverticulitis, Gastroesophageal Reflux Disease, Hepatitis, Hiatal Hernia, Peptic Ulcer Disease, Ulcerative Colitis, Other Musculoskeltal Medical History: Denies: None, Arthritis, Fibromyalgia, Gout, Other Skin Medical History: Denies: Eczema, Psoriasis Traumatic Medical History: Reports: None Hematology: Denies: None, Anemia, Hemophilia, Sickle Cell Disease, Bleeding Tendencies, Heparin Induced Thrombocytopenia, Neutropenia, Other Infectious Medical History: Reports: None Denies: Clostridium Difficile, Hepatitis B, Hepatitis C, HIV, Methicillin- Resistant Staph Aureus, Vancomycin-Resistant Enterococci, Other Past Surgical History Past Surgical History: Reports: Cholecystectomy Social History Lives with: Family Smoking Status: Current Every Day Smoker Electronic Cigarette use?: No Frequency of Alcohol Use: None Hx Recreational Drug Use: Yes - Urine screen positive for cocaine metabolites Drugs: None, Cocaine Hx Prescription Drug Abuse: No - Advance Directive Resuscitation Status: Full Code Family History Family History: denies: Arthritis, CAD, DM, Hypertension, Malignancy Parental Family History Reviewed: Yes Children Family History Reviewed: No Sibling(s) Family History Reviewed.: Yes Medication/Allergy Home Medications: No Home Medications 01/23/19 Allergies/Adverse Reactions: No Known Allergies Allergy (Verified 01/23/19 17:02) Review of Systems Constitutional: PRESENT: as per HPI Cardiovascular: ABSENT: as per HPI, chest pain, dyspnea on exertion, edema, o rthropnea, palpitations, other Respiratory: ABSENT: as per HPI, cough, dyspnea, hemoptysis, sputum, other Musculoskeletal: PRESENT: as per HPI Neurological: PRESENT: as per HPI Psychiatric: ABSENT: as per HPI, anxiety, depression, hallucinations, homidical ideation, suicidal ideation, other Endocrine: ABSENT: as per HPI, cold intolerance, flushing, heat intolerance, menstrual abnormalities, polydipsia, polyphagia, polyuria, other Allergic/Immunologic: ABSENT: as per HPI, seasonal rhinorrhea, other Physical Exam Vital Signs: Temp Pulse Resp BP Pulse Ox 98.0 F 59 L 18 134/71 H 98 01/27/19 00:00 01/27/19 00:00 01/27/19 00:00 01/27/19 00:00 01/27/19 00:00 Intake & Output 01/26/19 01/27/19 01/28/19 06:59 06:59 06:59 Intake Total 6702 1780 Balance 6774 1780 Weight 99 kg 97.1 kg General appearance: PRESENT: no acute distress Head exam: PRESENT: atraumatic Eye exam: PRESENT: conjunctiva pink, EOMI, PERRLA. ABSENT: scleral icterus Ear exam: PRESENT: normal external ear exam Mouth exam: PRESENT: moist, tongue midline Neck exam: ABSENT: carotid bruit, JVD, lymphadenopathy, thyromegaly Respiratory exam: PRESENT: clear to auscultation raman. ABSENT: rales, rhonchi, wheezes Cardiovascular exam: PRESENT: RRR. ABSENT: diastolic murmur, rubs, systolic murmur Pulses: PRESENT: +2 pedal pulses bilateral GI/Abdominal exam: PRESENT: normal bowel sounds, soft. ABSENT: distended, guarding, mass, organolmegaly, rebound, tenderness Rectal exam: PRESENT: deferred Musculoskeletal exam: PRESENT: other - Examination of the right shoulder: There is full passive range of motion of the right shoulder in forward elevation, external rotation, and internal rotation. There is tenderness and swelling of the deltoid region. The patient has difficulty with active forward elevation due to discomfort in his deltoid region. There is full motion of the elbow wrist and hand. Sensation is normal to touch. 2+ radial and ulnar pulses. Examination of the left shoulder: The patient has full active range of motion in forward elevation, external rotation, and internal rotation. There is full active motion of the elbow, wrist, and hand. Sensation is normal to touch. 2+ radial and ulnar pulses. Emanation of the lower extremities: There is tenderness to deep palpation in the gluteal musculature bilaterally. There is no discomfort with internal or external rotation of the hips. The patient has normal active motion of the quadriceps, hamstrings, ankle dorsiflexors and plantar flexors. Sensation is intact to touch. 2+ DP and PT pulses. Neurological exam: PRESENT: alert, awake, oriented to person, oriented to place, oriented to time, oriented to situation, CN II-XII grossly intact. ABSENT: motor sensory deficit Psychiatric exam: PRESENT: appropriate affect, normal mood. ABSENT: homicidal ideation, suicidal ideation Results Laboratory Results: 01/27/19 04:12 01/26/19 06:06 01/27/19 04:12 WBC 12.3 H RBC 4.12 L Hgb 13.3 L Hct 38.0 MCV 92 MCH 32.2 MCHC 34.9 RDW 12.3 Plt Count 304 Seg Neutrophils % Not Reportable 01/23/19 17:30 Blood Blood Culture (PCR) - Final Staphylococcus Species 01/23/19 17:30 Blood Blood Culture - Final Staphylococcus Hominis 01/23/19 01/23/19 01/24/19 17:30 21:55 04:20 Creatine Kinase 04574 H 23082 H 05316 H 01/24/19 01/24/19 01/25/19 11:00 16:25 08:01 Creatine Kinase 33164 H 38908 H 41758 H 01/26/19 01/27/19 06:06 04:12 Creatine Kinase 4958 H 1450 H Impressions: Chest X-Ray 01/23/19 19:27 IMPRESSION: Bibasilar subsegmental atelectasis -airspace opacities, left greater than right. No pleural effusion. Hip X-Ray 01/25/19 00:00 IMPRESSION: No acute findings. No significant hip joint space narrowing or bony spurring Shoulder X-Ray 01/25/19 00:00 IMPRESSION: NEGATIVE STUDY OF THE RIGHT SHOULDER. NO RADIOGRAPHIC EVIDENCE OF ACUTE INJURY. Status: Image reviewed by me - Radiographs of the right shoulder-normal. Assessment & Plan - Diagnosis (2) Rhabdomyolysis Qualifiers: Rhabdomyolysis type: non-traumatic Qualified Code(s): M62.82 - Rhabdomyolysis Is this a current diagnosis for this admission?: Yes - Time Time Spent: 30 to 50 Minutes Anticipated discharge: Home - Plan Summary Plan Summary: Symptoms are consistent with resolving rhabdomyolysis. The patient has normal range of motion of both shoulders to passive motion indicating there is no articular pathology. There is no evidence of compartment syndrome due to the rhabdomyolysis. Active range of motion of the right shoulder is inhibited due to pain as a result of rhabdomyolysis of the deltoid. This will be expected to resolve with the general treatment for the rhabdomyolysis. The patient's toxico logy screen is positive for cocaine metabolites. This is a frequent cause of rhabdomyolysis. I have discussed this with the patient.
[2019-01-27] MEDS ORDERED: PREDNISONE 20 MG TABLET PO SCH (10:00)
[2019-01-27] MEDS: AMOXICILLIN TR/POT CLAVULANATE 500-125 MG TAB PO SCH ×3 (10:54→21:34)
[2019-01-27] MEDS: DOCUSATE SODIUM 100 MG CAPSULE PO SCH ×2 (10:54→17:11)
[2019-01-27] MEDS ORDERED: METHYLPREDNISOLONE INJ 40 MG/1 ML SDV IV ONE (11:00)
--- NOTE | 2019-01-27 16:37 | PDOC PROGRESS REPORT ---
Subjective Progress Note for:: 01/27/19 Subjective:: Patient complaining of some increased pain in his right shoulder at this morning. States that this started from last night feels worse than he did yesterday morning. Reason For Visit: ACUTE POLYARTHRITIS Physical Exam Vital Signs: Temp Pulse Resp BP Pulse Ox 97.5 F 76 20 177/75 H 97 01/27/19 13:29 01/27/19 13:29 01/27/19 13:29 01/27/19 13:29 01/27/19 13:29 Intake & Output 01/26/19 01/27/19 01/28/19 06:59 06:59 06:59 Intake Total 6774 1780 240 Balance 6774 1780 240 Weight 99 kg 97.1 kg General appearance: PRESENT: no acute distress, cooperative Neck exam: ABSENT: JVD Respiratory exam: PRESENT: clear to auscultation raman, symmetrical, unlabored. ABSENT: tachypnea, wheezes Cardiovascular exam: PRESENT: RRR, +S1, +S2. ABSENT: tachycardia GI/Abdominal exam: PRESENT: normal bowel sounds, soft. ABSENT: distended, firm, guarding, tenderness Extremities exam: PRESENT: other - Patient still has tenderness in his right shoulder. Limited range of motion in the right shoulder. Left shoulder mildly tender. Some swelling to the right shoulder but without redness erythema or clear effusion. No swelling or tenderness in the knees. Mild tenderness in bilateral hips. Results Laboratory Results: 01/27/19 04:12 01/26/19 06:06 01/27/19 04:12 WBC 12.3 H RBC 4.12 L Hgb 13.3 L Hct 38.0 MCV 92 MCH 32.2 MCHC 34.9 RDW 12.3 Plt Count 304 Seg Neutrophils % Not Reportable 01/23/19 17:30 Blood Blood Culture (PCR) - Final Staphylococcus Species 01/23/19 17:30 Blood Blood Culture - Final Staphylococcus Hominis 01/23/19 01/23/19 01/24/19 17:30 21:55 04:20 Creatine Kinase 32908 H 12981 H 37217 H 01/24/19 01/24/19 01/25/19 11:00 16:25 08:01 Creatine Kinase 17152 H 73533 H 71367 H 01/26/19 01/27/19 06:06 04:12 Creatine Kinase 4958 H 1450 H Impressions: Chest X-Ray 01/23/19 19:27 IMPRESSION: Bibasilar subsegmental atelectasis -airspace opacities, left greater than right. No pleural effusion. Hip X-Ray 01/25/19 00:00 IMPRESSION: No acute findings. No significant hip joint space narrowing or bony spurring Shoulder X-Ray 01/25/19 00:00 IMPRESSION: NEGATIVE STUDY OF THE RIGHT SHOULDER. NO RADIOGRAPHIC EVIDENCE OF ACUTE INJURY. Assessment and Plan - Diagnosis (1) Rhabdomyolysis Qualifiers: Rhabdomyolysis type: non-traumatic Qualified Code(s): M62.82 - Rhabdo myolysis Is this a current diagnosis for this admission?: Yes Plan: Rhabdomyolysis is resolving and significantly improved. However patient is having tenderness and pain in both shoulders and both hips. Pain likely secondary to rhabdomyolysis. CK significantly improved. Potential causes of his rhabdomyolysis include cocaine or inflammatory myopathy. (2) Multiple joint pain Is this a current diagnosis for this admission?: Yes Plan: X-rays of both shoulders and hips show no evidence of arthritis. It is likely that patient's pains and swelling from his shoulders and hips and ankle may have been secondary to muscle inflammation/injury rather than articular bone inv olvement. ERICA qualitative came back elevated. Rheumatoid factor is negative. Anti-CCP pending. Anti-SSB elevated. Anti-GEOGRAPHIC INFORMATION SYSTEMS ANALYST elevated. Uric acid and ferritin level unimpressive Patient may likely have an inflammatory myopathy. Improved significantly with steroids. Give a dose of IV Solu-Medrol today. I will continue with prednisone every 12 hours. orthopedics evaluated and attribute restricted ROM in right shoulder and joint pains to rhabdomyolysis. Patient would ultimately need outpatient evaluation by punch press operator. (3) Acute kidney injury with acute tubular necrosis Is this a current diagnosis for this admission?: Yes Plan: I suspect ATN secondary to rhabdomyolysis. MARIANO currently resolved following IV fluids (4) Elevated liver function tests Is this a current diagnosis for this admission?: Yes (5) Leukocytosis Qualifiers: Leukocytosis type: unspecified Qualified Code(s): D72.829 - Elevated white blood cell count, unspecified Is this a current diagnosis for this admission?: Yes (6) Blood bacterial culture positive Is this a current diagnosis for this admission?: Yes Plan: One set positive for coagulase-negative staph. I think this may be contamination as patient is clinically improving and as such, I will repeat blood cultures. Continue on Augmentin for now. If repeat blood cultures, which were done before initiation of antibiotics, results negative by 48-hour rasheed, I will discharge wally vázquez home without antibiotics. - Time Time Spent with patient: Less than 15 minutes Anticipated discharge: Home Within: within 36 hours - Inpatient Certification Medical Necessity: Other - New blood culture results showing bacteremia. Need to be monitored for response and until repeat blood cultures are negative for 48 hours.
[2019-01-27] MEDS: PREDNISONE 20 MG TABLET PO SCH (17:11)
[2019-01-28] MEDS: TRAMADOL HCL 50 MG TABLET PO PRN (04:42)
[2019-01-28] MEDS: HEPARIN SOD (PORCINE) 5,000 UNIT/ML 1 ML VIAL SUBCUT SCH ×2 (05:00→14:18)
[2019-01-28] MEDS: PANTOPRAZOLE SODIUM 40 MG TABLET.DR PO SCH ×2 (05:00→17:57)
[2019-01-28] MEDS: AMOXICILLIN TR/POT CLAVULANATE 500-125 MG TAB PO SCH ×2 (05:00→14:23)
[2019-01-28 05:20] LABS: BLOOD UREA NITROGEN 18 mg/dL (7-20); CALCIUM 9.3 mg/dL (8.4-10.2); CHLORIDE 103 mmol/L (98-107); CREATINE KINASE 725 U/L (55-170); GLUCOSE 116 mg/dL (75-110)
[2019-01-28 05:25] LABS: ANION GAP 5 (5-19); CARBON DIOXIDE 30 mmol/L (22-30)
[2019-01-28] MEDS: DOCUSATE SODIUM 100 MG CAPSULE PO SCH ×2 (09:12→17:56)
[2019-01-28] MEDS: PREDNISONE 20 MG TABLET PO SCH ×2 (09:12→17:57)
[2019-01-28] MEDS: ACETAMINOPHEN 325 MG TABLET PO PRN (11:23)
[2019-01-28 16:53] VITALS: BP 172/87
--- NOTE | 2019-01-28 18:16 | PDOC DISCHARGE SUMMARY ---
Impression - Admit/DC Date/PCP Admission Date/Primary Care Provider: 01/23/19 19:55 Discharge Date: 01/28/19 - Discharge Diagnosis (1) Rhabdomyolysis Is this a current diagnosis for this admission?: Yes (2) Multiple joint pain Is this a current diagnosis for this admission?: Yes (3) Acute kidney injury with acute tubular necrosis Is this a current diagnosis for this admission?: Yes (4) Elevated liver function tests Is this a current diagnosis for this admission?: Yes (5) Leukocytosis Is this a current diagnosis for this admission?: Yes (6) Blood bacterial culture positive Is this a current diagnosis for this admission?: Yes - Assessment Summary: Patient presented with complaints of pain in his right shoulder accompanied with significant swelling. Also complains of pain in and some swelling in his left shoulder, both hips and ankles. Patient was found on blood work to have significant rhabdomyolysis with CK over 40,000. Further blood work also revealed leukocytosis, elevated transaminases secondary to rhabdomyolysis, elevated creatinine and elevated ESR and CRP. Toxicology was positive for cocaine which is a potential cause of rhabdomyolysis. Patient was noted to be having MARIANO likely from acute tubular necrosis from rhabdomyolysis. He was admitted and started with aggressive IV fluid hydration with improvement of his CK levels. Patient denied any prior episodes. Giving the significant elevation of inflammatory markers and complaint of the poly-joint pains at the time, rheumatologic markers were drawn upon admission. Of note patient responded very nicely to steroids with significant improvement of his pain and swelling. ERICA came back positive, anti-SSA antibody negative, anti-SSB antibody positive and anti-WING SCORER was positive. Anti-CCP and rheumatoid factor were negative. X-rays of his right shoulder and both hips were done which showed no evidence of articular or joint involvement. Patient was evaluated by orthopedics given persistence of limited range of motion in the right shoulder despite improvement of other symptoms. Orthopedics evaluated and stated that it was likely all secondary to rhabdomyolysis and that there was no joint or bone involvement and no interventions arthrocentesis necessary. The cause of patient's rhabdomyolysis is uncertain but could be have been secondary to cocaine use. Giving his significantly elevated inflammatory markers, patient has been referred to follow-up with human performance professor to see if further work-up is needed and to see if his positive rheumatological markers hold clinical relevance. In the meantime patient has been placed on the slow prednisone taper given the remarkable response of his symptoms, pain and swelling to steroids while inpatient. During patient's admission, patient's blood cultures drawn in the ER resulted positive for 1 set of 2 bottles for staph hominis. Given suspicion for this being a contaminant, repeat blood cultures were drawn before starting antibiotics. The repeat blood cultures have been negative for over 48 hours now and patient is going to be discharged without any antibiotics as this was likely a contaminant. Patient has clinically improved significantly without antibiotics even up to the time of the initial positive blood cultures. Patient has been discharged in stable conditions to follow-up with her human performance professor and the [facility]. - Additional Information Resuscitation Status: Full Code Referrals: [facility] [Outside] - 02/07/19 10:30 am Prescriptions: Prednisone [Deltasone 5 mg Tablet] 15 mg PO Q12 #40 tablet Acetaminophen [Tylenol Extra Strength 500 mg Tablet] 2 tab PO QIDP PRN #40 tab PRN Reason: Home Medications: Acetaminophen [Tylenol Extra Strength 500 mg Tablet] 2 tab PO QIDP PRN #40 tab 01/28/19 Prednisone [Deltasone 5 mg Tablet] 15 mg PO Q12 #40 tablet 01/28/19 History of Present Illiness History of Present Illness: SKYLA GUERRA is a 38 year old male who presented to the emergency room with a 2- day history of right shoulder pain. Patient admits developing pain in his right shoulder that has gradually worsened to severe at the time of his presentation. His right shoulder is swollen and tender to touch with severe pain on movement. His right shoulder pain has been accompanied by left shoulder pain and bilateral hip pain that has also gradually increased over the last 2 days, becoming severe and limiting his ability to walk. He also noted swelling in his right hip with associated numbness in his right foot. He denies history of injury. He denies other associated or accompanying signs and symptoms. He denies prior similar episodes. He has not identified any additional aggravating or ameliorating factors for his shoulder and hip pain. In the emergency room he was found to have a swollen and tender right shoulder with decreased range of motion due to severe pain. Additionally he was noted to have left shoulder and bilateral hip tenderness and decreased range of motion due to pain. He was also noted to have an elevated BUN, elevated creatinine, markedly elevated CPK, markedly elevated CRP, markedly elevated ESR and a leukocytosis. Two small areas of superficial folliculitis were noted in the right postauricular region of his neck. He was subsequently admitted to the hospital for further evaluation and treatment. Physical Exam Vital Signs: Temp Pulse Resp BP Pulse Ox 97.5 F 66 17 172/87 H 99 01/28/19 16:00 01/28/19 16:00 01/28/19 16:00 01/28/19 16:00 01/28/19 16:00 Intake & Output 01/27/19 01/28/19 01/29/19 06:59 06:59 06:59 Intake Total 1780 490 360 Balance 1780 490 360 Weight 97.1 kg 97.9 kg General appearance: PRESENT: cooperative Neck exam: ABSENT: JVD Respiratory exam: PRESENT: clear to auscultation raman Cardiovascular exam: PRESENT: RRR, +S1, +S2. ABSENT: tachycardia Musculoskeletal exam: PRESENT: ambulatory, tenderness, other - Limited range of motion in the right shoulder. ABSENT: deformity, dislocation Results Laboratory Results: WBC 12.3 10^3/uL (4.0-10.5) H 01/27/19 04:12 RBC 4.12 10^6/uL (4.35-5.55) L 01/27/19 04:12 Hgb 13.3 g/dL (13.5-17.0) L 01/27/19 04:12 Hct 38.0 % (37.9-51.0) 01/27/19 04:12 MCV 92 fl (80-97) 01/27/19 04:12 MCH 32.2 pg (27.0-33.4) 01/27/19 04:12 MCHC 34.9 g/dL (32.0-36.0) 01/27/19 04:12 RDW 12.3 % (11.5-14.0) 01/27/19 04:12 Plt Count 304 10^3/uL (150-450) 01/27/19 04:12 Lymph % (Auto) Not Reportable 01/27/19 04:12 [place] % (Auto) Not Reportable 01/27/19 04:12 Eos % (Auto) Not Reportable 01/27/19 04:12 Baso % (Auto) Not Reportable 01/27/19 04:12 Absolute Neuts (auto) Not Reportable 01/27/19 04:12 Absolute Lymphs (auto) Not Reportable 01/27/19 04:12 Absolute Monos (auto) Not Reportable 01/27/19 04:12 Absolute Eos (auto) Not Reportable 01/27/19 04:12 Absolute Basos (auto) Not Reportable 01/27/19 04:12 Total Counted 100 01/27/19 04:12 Seg Neutrophils % Not Reportable 01/27/19 04:12 Seg Neuts % (Manual) 62 % (42-78) 01/27/19 04:12 Band Neutrophils % 2 % (3-5) L 01/27/19 04:12 Lymphocytes % (Manual) 22 % (13-45) 01/27/19 04:12 Monocytes % (Manual) 14 % (3-13) H 01/27/19 04:12 Eosinophils % (Manual) 0 % (0-6) 01/27/19 04:12 Basophils % (Manual) 0 % (0-2) 01/27/19 04:12 Abs Neuts (Manual) 7.9 10^3/uL (1.7-8.2) 01/27/19 04:12 Abs Lymphs (Manual) 2.7 10^3/uL (0.5-4.7) 01/27/19 04:12 Abs Monocytes (Manual) 1.7 10^3/uL (0.1-1.4) H 01/27/19 04:12 Absolute Eos (Manual) 0.0 10^3/uL (0.0-0.6) 01/27/19 04:12 Abs Basophils (Manual) 0.0 10^3/uL (0.0-0.2) 01/27/19 04:12 Toxic Granulation SLIGHT 01/27/19 04:12 Toxic Vacuolation PRESENT 01/27/19 04:12 Platelet Comment ADEQUATE 01/27/19 04:12 Poikilocytosis SLIGHT 01/27/19 04:12 Tear Drop Cells SLIGHT 01/27/19 04:12 Ovalocytes SLIGHT 01/27/19 04:12 RBC Morph Comment NORMO-CYTIC/CHROMIC 01/23/19 17:30 ESR 66 mm/hr (0-15) H 01/23/19 17:30 Sodium 137.9 mmol/L (137-145) 01/28/19 04:18 Potassium 4.0 mmol/L (3.6-5.0) 01/28/19 04:18 Chloride 103 mmol/L (98-107) 01/28/19 04:18 Carbon Dioxide 30 mmol/L (22-30) 01/28/19 04:18 Anion Gap 5 (5-19) 01/28/19 04:18 BUN 18 mg/dL (7-20) 01/28/19 04:18 Creatinine 0.79 mg/dL (0.52-1.25) 01/28/19 04:18 Est GFR ( Amer) > 60 (>60) 01/28/19 04:18 Est GFR (MDRD) Non-Af > 60 (>60) 01/28/19 04:18 Glucose 116 mg/dL (75-110) H 01/28/19 04:18 Lactic Acid (Sepsis) 1.1 mmol/L (0.7-2.1) 01/23/19 17:30 Uric Acid 7.9 mg/dL (3.5-8.5) 01/24/19 16:25 Calcium 9.3 mg/dL (8.4-10.2) 01/28/19 04:18 Magnesium 1.9 mg/dL (1.6-2.3) 01/26/19 06:06 Ferritin 241.00 ng/mL (17.9-464.0) 01/24/19 16:25 Total Bilirubin 1.6 mg/dL (0.2-1.3) H 01/23/19 17:30 Direct Bilirubin 0.7 mg/dL (0.0-0.4) H 01/23/19 17:30 Neonat Total Bilirubin Not Reportable 01/23/19 17:30 Neonat Direct Bilirubin Not Reportable 01/23/19 17:30 Neonat Indirect Bili Not Reportable 01/23/19 17:30 AST 1013 U/L (17-59) H 01/23/19 17:30 ALT 401 U/L (<50) 01/23/19 17:30 Alkaline Phosphatase 85 U/L (38-126) 01/23/19 17:30 Creatine Kinase 725 U/L (55-170) H 01/28/19 04:18 C-Reactive Protein 344.9 mg/L (<10.0) H 01/23/19 17:30 Total Protein 8.4 g/dL (6.3-8.2) H 01/23/19 17:30 Albumin 4.4 g/dL (3.5-5.0) 01/23/19 17:30 Triglycerides 233 mg/dL (<150) H 01/24/19 04:20 Cholesterol 217.19 mg/dL (0-200) H 01/24/19 04:20 LDL Cholesterol Direct 99 mg/dL (<100) 01/24/19 04:20 VLDL Cholesterol 46.6 mg/dL (10-31) H 01/24/19 04:20 HDL Cholesterol 40 mg/dL (>40) 01/24/19 04:20 TSH 0.47 uIU/mL (0.47-4.68) 01/24/19 04:20 Urine Color YELLOW 01/23/19 20:28 Urine Appearance SLIGHTLY-CLOUDY 01/23/19 20:28 Urine pH 5.0 (5.0-9.0) 01/23/19 20:28 Ur Specific [place] 1.013 01/23/19 20:28 Urine Protein 30 mg/dL (NEGATIVE) H 01/23/19 20:28 Urine Glucose (UA) NEGATIVE mg/dL (NEGATIVE) 01/23/19 20:28 Urine Ketones NEGATIVE mg/dL (NEGATIVE) 01/23/19 20:28 Urine Blood LARGE (NEGATIVE) H 01/23/19 20:28 Urine Nitrite NEGATIVE (NEGATIVE) 01/23/19 20:28 Urine Bilirubin NEGATIVE (NEGATIVE) 01/23/19 20:28 Urine Urobilinogen NEGATIVE mg/dL (<2.0) 01/23/19 20:28 Ur Leukocyte Esterase NEGATIVE (NEGATIVE) 01/23/19 20:28 Urine WBC (Auto) 3 /HPF 01/23/19 20:28 Urine RBC (Auto) 1 /HPF 01/23/19 20:28 U Hyaline Cast (Auto) 1 /LPF 01/23/19 20:28 Urine Bacteria (Auto) TRACE /HPF 01/23/19 20:28 Squamous Epi Cells Auto <1 /HPF 01/23/19 20:28 Urine Mucus (Auto) RARE /LPF 01/23/19 20:28 Urine Ascorbic Acid NEGATIVE (NEGATIVE) 01/23/19 20:28 Urine Opiates Screen UNCONFIRMED POSITIVE 01/24/19 00:44 Urine Methadone Screen NEGATIVE 01/24/19 00:44 Ur Barbiturates Screen NEGATIVE 01/24/19 00:44 Ur Phencyclidine Scrn NEGATIVE 01/24/19 00:44 Ur Amphetamines Screen NEGATIVE 01/24/19 00:44 U Benzodiazepines Scrn NEGATIVE 01/24/19 00:44 Urine Cocaine Screen UNCONFIRMED POSITIVE 01/24/19 00:44 U Marijuana (THC) Screen NEGATIVE 01/24/19 00:44 Rheumatoid Factor NEGATIVE (NEGATIVE) 01/24/19 16:25 CCP IgG/IgA Ab 6 units (0-19) 01/24/19 16:25 Anti-Nuclear Antibody Positive (Negative) H 01/23/19 21:55 ERICA Comment Comment (.) 01/23/19 21:55 SS-A/Ro Antibody <0.2 AI (0.0-0.9) 01/23/19 21:55 SS-B/La Antibody 2.8 AI (0.0-0.9) H 01/23/19 21:55 WING SCORER Antibody >8.0 AI (0.0-0.9) H 01/23/19 21:55 Chlamydia DNA (PCR) NOT DETECTED (NOT DETECT) 01/24/19 00:44 Hepatitis A IgM Ab Negative (Negative) 01/26/19 06:06 Hep Bs Antigen Negative (Negative) 01/26/19 06:06 Hep B Core IgM Ab Negative (Negative) 01/26/19 06:06 Hepatitis C Antibody <0.1 s/co ratio (0.0-0.9) 01/26/19 06:06 N.gonorrhoeae DNA (PCR) NOT DETECTED (NOT DETECT) 01/24/19 00:44 Anti-Streptolysin Titr <200 IU/mL (<200) 01/23/19 21:55 Impressions: Chest X-Ray 01/23/19 19:27 IMPRESSION: Bibasilar subsegmental atelectasis -airspace opacities, left greater than right. No pleural effusion. Hip X-Ray 01/25/19 00:00 IMPRESSION: No acute findings. No significant hip joint space narrowing or bony spurring Shoulder X-Ray 01/25/19 00:00 IMPRESSION: NEGATIVE STUDY OF THE RIGHT SHOULDER. NO RADIOGRAPHIC EVIDENCE OF ACUTE INJURY. Plan Time Spent: Less than 30 Minutes Stroke Is this a Stroke Patient?: No Acute Heart Failure - Is this a Heart Failure Patient?: No
== END 2019-01-28 19:21 | disposition home or self-care (01) | DRG 557 ==
LOC: ER 16:24 → EH 19:55 → 5 01-24 12:40
PROVIDERS: ADMIT Emergency Medicine; ATTEND Emergency Medicine
DX: M62.82 Rhabdomyolysis (principal); N17.0 Acute kidney failure with tubular necrosis; F14.90 Cocaine use, unspecified, uncomplicated; R78.2 Finding of cocaine in blood; D72.829 Elevated white blood cell count, unspecified; M25.511 Pain in right shoulder; M25.552 Pain in left hip; M25.551 Pain in right hip; M25.572 Pain in left ankle and joints of left foot; M25.571 Pain in right ankle and joints of right foot; F17.200 Nicotine dependence, unspecified, uncomplicated; Z90.49 Acquired absence of other specified parts of digestive tract
CPT/HCPCS: 36415; 71045; 73522; 80048; 80053; 80061; 80074; 80307; 81001; 82550; 82728; 83605; 83735; 84443; 84550; 85025; 85027; 85652; 86038; 86060; 86140; 86200; 86430; 87040; 87077; 87150; 87186; 87491; 87591; 93005; 93010; 96361; 96374; 96375; 99291; J1644; J2270; J2405; J2920; J2930; J3360; J3490; J7030; J7120; J7512

== ENCOUNTER 2020-01-10 17:20 | Emergency (ER) | payer SELFPAY ==
[2020-01-10] MEDS ORDERED: IBUPROFEN 800 MG TABLET PO ONE (19:48)
--- NOTE | 2020-01-10 19:59 | ER Document Report ---
HPI - HPI Patient complains to provider of: Right knee pain Time Seen by Provider: 01/10/20 19:44 Onset/Duration: Persistent Quality of pain: Achy Pain Level: 5 Context: Patient presents complaining of worsening of chronic right knee pain. Patient states that he injured the knee 5 years ago and never saw orthopedics after the injury. Patient has been using a brace although states the pain is keeping him up at night. Patient denies any new injury. Patient states the knee occasionally will give out on him. Associated Symptoms: Other - Right knee joint pain. denies: Fever, Nausea Exacerbated by: Standing, Movement, Walking Relieved by: Remaining still Similar symptoms previously: Yes Recently seen / treated by doctor: No - ROS ROS below otherwise negative: Yes Systems Reviewed and Negative: Yes All other systems reviewed and negative - CONSTITUTIONAL Constitutional: DENIES: Fever - NEURO Neurology: DENIES: Weakness - GASTROINTESTINAL Gastrointestinal: DENIES: Nausea - MUSCULOSKELETAL Musculoskeletal: REPORTS: Extremity pain - DERM Skin Color: Normal Skin Problems: None Past Medical History - General Information source: Patient - Social History Smoking Status: Never Smoker Frequency of alcohol use: None Drug Abuse: None Occupation: Construction Family History: denies: Arthritis, CAD, DM, Hypertension, Malignancy - Medical History Medical History: Negative Neurological Medical History: Denies: Hx Migraine, Hx Seizures Renal/ Medical History: Denies: Hx End Stage Renal Disease Musculoskeletal Medical History: Denies Hx Arthritis, Denies Hx Fibromyalgia, Denies Hx Gout Skin Medical History: Denies Hx Eczema, Denies Hx Psoriasis Past Surgical History: Reports: Hx Cholecystectomy Vertical Provider Document - CONSTITUTIONAL Agree With Documented VS: Yes Exam Limitations: No Limitations General Appearance: WD/WN, No Apparent Distress - INFECTION CONTROL TRAVEL OUTSIDE OF THE [place] IN LAST 30 DAYS: No - HEENT HEENT: Atraumatic, Normocephalic - NECK Neck: Normal Inspection - RESPIRATORY Respiratory: Breath Sounds Normal, No Respiratory Distress - CARDIOVASCULAR Cardiovascular: Regular Rate, Regular Rhythm Pulses: Normal: Dorsalis pedis - MUSCULOSKELETAL/EXTREMETIES Musculoskeletal/Extremeties: MAEW, Tender - Right knee joint tenderness to medial compartment, no effusion, no laxity with varus or valgus maneuvers. Tenderness along joint line, No Edema. negative: Eccymosis - NEURO Level of Consciousness: Awake, Alert, Appropriate Motor/Sensory: No Motor Deficit, No Sensory Deficit - DERM Integumentary: Warm, Dry Course - Diagnostic Test Radiology reviewed: Image reviewed, Reports reviewed Procedures - Immobilization Right Knee Pre-Proc Neuro Vasc Exam: Normal Immobilizer type: Knee immobilizer Performed by: PCT Post-Proc Neuro Vasc Exam: Normal Alignment checked and good: Yes Discharge - Discharge Clinical Impression: Right knee sprain Qualifiers: Encounter type: initial encounter Involved ligament of knee: unspecified ligame nt Qualified Code(s): S83.91XA - Sprain of unspecified site of right knee, initial encounter Condition: Stable Disposition: HOME, SELF-CARE Instructions: Use of Crutches ([facility]), Suspected Internal Knee Injury ([facility]), Knee Immobilizing Splint ([facility]), Oral Narcotic Medication ([facility]) Additional Instructions: Return immediately for any new or worsening symptoms Followup with your primary care provider, call tomorrow to make a followup appointment Follow-up with orthopedics, call tomorrow for an appointment Prescriptions: Naproxen [Naprosyn 250 Nmg Tablet] 1 tab PO BID #14 tablet Forms: Return to Work Referrals: [facility] [facility] [Provider Group] - Follow up as needed MERI GARCIA MD [ACTIVE STAFF] - Follow up as needed
--- NOTE | 2020-01-10 20:56 | RADIOLOGY REPORT (SQ) ---
CLINICAL INDICATION: r knee pain. . TECHNIQUE: 4 view(s) were obtained of the right knee. COMPARISON: None. FINDINGS: No acute displaced fracture is identified of the knee. Alignment appears anatomic. Joint spaces are within normal limits for age. No significant joint effusion. Soft tissue swelling. IMPRESSION: No evidence of acute displaced fracture of the knee.
[2020-01-10] MEDS ORDERED: HYDROCODONE/ACETAMINOPHEN 5-325 MG (6 TAB/ER DISP) PO PRN (21:48)
[2020-01-10 22:24] VITALS: BP 139/99
[2020-01-10] MEDS ORDERED: IBUPROFEN 800 MG TABLET ONE (22:30)
== END 2020-01-10 22:50 | disposition home or self-care (01) ==
LOC: ER 17:20
DX: S83.91XA Sprain of unspecified site of right knee, initial encounter (principal); X58.XXXA Exposure to other specified factors, initial encounter
CPT/HCPCS: 99284